=== PATIENT | female | born 1990 | race Caucasian/White ===

== ENCOUNTER → 2017-01-20 | Outpatient (CLI) | payer BC, MEDICAID ==
[~2017-01-20] MED LIST: ALPR0.5T PO; BUSP5TAB59 PO; CYAN10007 IM; HYDR-3812 PO; IBP800T PO; IBUP-1780 PO; LEVO125T6 PO; LEVO25TA45 PO; PNT40TEC PO; SPIR100T37 PO; SUMA100T3 PO; ZOLP5TAB PO
--- NOTE | 2017-01-20 14:28 | Diagnostic Imaging Report ---
Transabdominal and transvaginal pelvic ultrasound. INDICATION: Painful cycles and heavy bleeding. FINDINGS: The uterus is 8.1 x 4 x 4 cm. The endometrial stripe is 1.1 cm in thickness. There is no focal myometrial lesion seen. The right ovary is 3 x 2 x 3.1 cm. The left ovary is 2.1 x 1.6 x 1.6 cm. The ovaries demonstrate arterial and venous waveforms. No mass or fluid collection seen. IMPRESSION: Unremarkable exam. Dictated by: Dictated on workstation # [id number]
== END ==
LOC: RAD 11:54
PROVIDERS: ATTEND Obstetrics & Gynecology
DX: R10.2 Pelvic and perineal pain (principal); N94.19 Other specified dyspareunia
CPT/HCPCS: 76830; 76856

== ENCOUNTER 2017-01-28 05:49 | Outpatient (CLI) | payer BC ==
[~2017-01-28] VITALS: Ht 162.6 cm; Wt 96.6 kg
[2017-01-28] MEDS ORDERED: METF500T4 PO (12:14)
[2017-01-30] MEDS ORDERED: IBUP-1773 PO (08:45)
[2017-01-30] MEDS ORDERED: HYDR-3812 PO (08:45)
== END 2017-01-28 12:22 ==
LOC: PREOP 05:49
PROVIDERS: ATTEND Obstetrics & Gynecology
DX: Z01.818 Encounter for other preprocedural examination (principal); R10.2 Pelvic and perineal pain

== ENCOUNTER 2017-01-30 07:14 | Day surgery (SDC) | payer BC ==
[~2017-01-30] VITALS: Ht 162.6 cm; Wt 96.6 kg
[~2017-01-30 07:14] MED LIST changes: +BUPIVACAINE 0.25% 30 ML (SENSORCAINE) VIAL ONE; +DEXAMETHASONE PF 10 MG/ML (DECADRON) VIAL ONE; +LACTATED RINGERS 1,000 ML IV ONE; +LIDOCAINE PF 2% 10 ML (XYLOCAINE) AMP ONE; +METF500T4 PO; +METHYLENE BLUE 1% INJ 1 ML AMP ONE; +MIDAZOLAM 2 MG/2 ML (VERSED) VIAL ONE; +ONDANSETRON 4 MG/2 ML (SDV) Z0FRAN ONE; +ROCURONIUM 50 MG/5 ML (ZEMURON) VIAL IV ONE; +SEVOFLURANE (ULTANE) 15 ML INHAL SOLN ONE; +fentaNYL INJECTION 250 MCG/5 ML AMP ONE; +proPOfol 200 MG/20 ML (DIPRIVAN) VIAL IV ONE
[2017-01-30 07:30] VITALS: BP 124/87
[2017-01-30] MEDS ORDERED: ceFAZolin 1 GM/NS 50 ML IVPB IV ONE ×2 (07:30)
[2017-01-30] MEDS: LACTATED RINGERS 1,000 ML IV PRN ×2 (07:30→08:20)
--- NOTE | 2017-01-30 07:35 | Progress Note-Pre Operative ---
Pre-Operative Progress Note H&P Reviewed The H&P was reviewed, patient examined and no changes noted. Date H&P Reviewed: January 30, 2017 Time H&P Reviewed: 07:15 Pre-Operative Diagnosis: CPP, Dyspareunia, Dysmenorrhea ERAN GARCIA DO January 30, 2017 7:35 am
[2017-01-30] MEDS ORDERED: NEOSTIGMINE (BLOXIVERZ ) 1 MG/1ML 10 ML VIAL ONE (08:15)
[2017-01-30] MEDS ORDERED: GLYCOPYRROLATE 0.2 MG/ML (ROBINUL) 2 ML VIAL ONE (08:15)
[2017-01-30] MEDS ORDERED: morphine INJ 10 MG/ML 1ML (SYR OR VIAL) ONE (08:30)
[2017-01-30] MEDS ORDERED: MEPERIDINE (DEMEROL) INJ 50 MG/ML ONE (08:30)
[2017-01-30] MEDS ORDERED: KETOROLAC 30 MG/ML VIAL ONE (08:30)
[2017-01-30] MEDS ORDERED: ONDANSETRON 4 MG/2 ML (SDV) Z0FRAN ONE (08:30)
[2017-01-30] MEDS: morphine INJ 10 MG/ML 1ML (SYR OR VIAL) IVP PRN ×2 (08:39→08:43)
[2017-01-30] MEDS ORDERED: D5 LR IV SOLUTION 1,000 ML IV SCH (08:40)
--- NOTE | 2017-01-30 08:43 | Discharge Inst-Women's Service ---
Discharge Inst-Women's Serv Depart Medication/Instructions New, Converted or Re-Newed RX: RX on Chart Consults/Follow Up Additional Follow Up: Yes Activity Activity: Activity as Tolerated Driving Instructions: No Driving for 1 Week NO SMOKING: NO SMOKING Nothing Inside Vagina: No Douching, No [place], No Tampons Diet Discharge Diet: No Restrictions Symptoms to Report to : Bleeding Excessive, Pain Increased, Fever Over 101 Degrees F, Vaginal Bleeding Increase, Questions/Concerns For Any Problems or Questions: Contact Your Physician Skin/Wound Care Infection Signs and Symptoms: Increased Redness, Foul Odor of Wound, Increased Drainage, Skin Itchy or Has a Rash, Increased Swelling, Temperature Above 101 F Operative Area Clean and Dry: Keep Incision Clean/Dry Stitches/Colt/Dermabond: Dermabond, Care of Stitches Bathing Instructions: ERAN Mendoza DO January 30, 2017 08:43
[2017-01-30] MEDS ORDERED: HYDROcodone/APAP 5 MG/325 MG (LORTAB) TAB PO PRN (08:45)
[2017-01-30] MEDS ORDERED: IBUP-1773 PO (08:45)
[2017-01-30] MEDS ORDERED: KETOROLAC 30 MG/ML VIAL IVP ONE (08:45)
[2017-01-30] MEDS ORDERED: fentaNYL INJECTION 100 MCG/2 ML AMP IVP PRN (08:45)
[2017-01-30] MEDS ORDERED: ONDANSETRON 4 MG/2 ML (SDV) Z0FRAN IVP PRN ×2 (08:45)
[2017-01-30] MEDS ORDERED: HYDR-3812 PO (08:45)
[2017-01-30] MEDS: MEPERIDINE (DEMEROL) INJ 50 MG/ML IVP PRN (08:45)
--- NOTE | 2017-01-30 08:57 | Progress Note-Post Operative ---
Post-Operative Progess Note Surgeon (s)/Trim Mounter (s) Surgeon ERAN GARCIA DO Trim Mounter: Quick Pre-Operative Diagnosis CPP, Dyspareunia, Dysmenorrhea Post-Operative Diagnosis same Procedure & Operative Findings Date of Procedure 01/30/17 Procedure Performed/Findings Dx Laparoscopy w/ chromotubation Anesthesia Type GETA Estimated Blood Loss Estimated blood loss (mL): min Specimens/Packing Specimens Removed none ERAN GARCIA DO January 30, 2017 8:57 am
[2017-01-30 09:25] VITALS: BP 124/79
[2017-01-30 09:55] VITALS: BP 124/77
--- NOTE | 2017-01-30 10:47 | OPERATIVE REPORT ---
DATE OF SERVICE: 01/30/2017 PREOPERATIVE DIAGNOSES: 1. A 26-year-old female with chronic pelvic pain. 2. Dyspareunia. 3. Dysmenorrhea. POSTOPERATIVE DIAGNOSES: 1. A 26-year-old female with chronic pelvic pain. 2. Dyspareunia. 3. Dysmenorrhea. 4. Bilateral patent fallopian tubes. PROCEDURE: Diagnostic laparoscopy with chromopertubation. SURGEON: Dr. Eran Garcia ANESTHESIA: General endotracheal. ESTIMATED BLOOD LOSS: Minimal. URINE OUTPUT: 15 mL, clear at the end of the procedure. FLUIDS: 1000 mL, lactated Ringer solution. FINDINGS: Grossly normal appearing uterus, bilateral fallopian tubes and ovaries with bilateral spillage of dye from tubes. Grossly normal appearing cervix and vagina. SPECIMENS SENT: None. INDICATIONS FOR PROCEDURE: This 26-year-old female is a patient that has been seeing me in my office for greater than 2 years now. She came in for her annual exam earlier this year and reports attempting for the past year and has been unsuccessful. She also reports worsening chronic pelvic pain and pain with intercourse throughout the year. We discussed the possibility of there being underlying endometriosis due to this ongoing issue with pain; however, we discussed this could be due to tubal occlusion as well so we decided to proceed with a diagnostic laparoscopy. Risks of the procedure were discussed with the patient in detail including risks of bleeding, infection, damage to surrounding structures including but not limited to bowel, bladder, ureter and kidneys, risk of damage to reproductive system. We also discussed the potential for doing nothing, which the patient was not agreeable to do. Consent was obtained in the preoperative area and the patient was taken to the operating room. OPERATIVE REPORT IN DETAIL: Once in the operating room, general anesthesia was found to be adequate, was placed in dorsal lithotomy, prepped and draped in normal sterile fashion. She is first examined under anesthesia. The uterus is not enlarged, freely mobile. No masses or fullness appreciated on bimanual examination. A weighted speculum is inserted into the patient's vagina. A right angle retractor was used to visualize the cervix. It was grasped at the 12 o'clock position using the long Allis clamp. A Kroner uterine manipulator is then placed within the uterus where the balloon is deployed and the manipulator is noted to have excellent manipulation on bimanual examination. I then removed all of the other instruments from the patient's vagina. A Arshad catheter is placed under sterile technique. I performed a change of gloves and turned my attention to the abdomen where the umbilicus was infiltrated sterilely using 1/4% Marcaine and made a 5 mm incision, directed Veress needle into the incision until intraperitoneal placement was confirmed using the saline drops. After this, we proceeded with insufflation using CO2 gas. An opening pressure of 3 mmHg was noted. I proceeded to a maximum pressure of 15 mmHg, at which point I removed the Veress needle and introduced the 5 mm blunt trocar. Once this was in place, I am able to confirm intraperitoneal placing using the laparoscope. I then briefly scanned the pelvic anatomy after placing the patient in steep Trendelenburg. There was no gross abnormalities noted. Using the Kroner uterine manipulator, I infiltrate 100 mL of methylene blue dye that has been mixed with normal saline. Bilateral tubal spillage is noted, after which I copiously irrigated the pelvis using normal saline. There was no active bleeding noted from any of my dissection planes, there is no active bleeding noted from my entry point into the abdomen. There is no gross abnormality noted in the tubes, ovaries, ____ peritoneum or the posterior cul de sac. After which the procedure was deemed complete. I then had the patient taken out of steep Trendelenburg and removed insufflated through the trocar site. I then removed the trocar and closed the skin incision using Dermabond. The Kroner was removed. The Arshad catheter was removed. The patient was taken to the recovery area in stable condition. Lab and sponge counts were correct at the end of the procedure. Instruments counts were correct as well. Job ID: [id number] DocumentID: [id number] Dictated Date: 01/30/2017 08:56:17 Damage Adjuster Date: 01/30/2017 10:47:01 Dictated By: ERAN GARCIA DO
== END 2017-01-30 10:30 | disposition home or self-care (01) ==
LOC: SDC 07:14
PROVIDERS: ATTEND Obstetrics & Gynecology
DX: R10.2 Pelvic and perineal pain (principal); N94.10 Unspecified dyspareunia; E28.2 Polycystic ovarian syndrome; K21.9 Gastro-esophageal reflux disease without esophagitis; F41.9 Anxiety disorder, unspecified; Z79.84 Long term (current) use of oral hypoglycemic drugs
CPT/HCPCS: 84703; 86850; 86900; 86901; 87081; 94664

== ENCOUNTER 2017-06-05 21:40 | Emergency (ER) | payer BC ==
[~2017-06-05] VITALS: Ht 162.6 cm; Wt 95.3 kg
[~2017-06-05 21:40] MED LIST changes: -BUPIVACAINE 0.25% 30 ML (SENSORCAINE) VIAL ONE; -DEXAMETHASONE PF 10 MG/ML (DECADRON) VIAL ONE; +IBUP-1773 PO; -LACTATED RINGERS 1,000 ML IV ONE; -LIDOCAINE PF 2% 10 ML (XYLOCAINE) AMP ONE; -METHYLENE BLUE 1% INJ 1 ML AMP ONE; -MIDAZOLAM 2 MG/2 ML (VERSED) VIAL ONE; -ONDANSETRON 4 MG/2 ML (SDV) Z0FRAN ONE; -ROCURONIUM 50 MG/5 ML (ZEMURON) VIAL IV ONE; -SEVOFLURANE (ULTANE) 15 ML INHAL SOLN ONE; -fentaNYL INJECTION 250 MCG/5 ML AMP ONE; -proPOfol 200 MG/20 ML (DIPRIVAN) VIAL IV ONE
[2017-06-05 22:16] LABS: BILIRUBIN,URINE NEGATIVE (NEGATIVE); KETONES,URINE NEGATIVE (NEGATIVE); LEUKOCYTE ESTERASE ,URINE NEGATIVE (NEGATIVE); NITRITE,URINE NEGATIVE (NEGATIVE); PH,URINE 7 (5-9); PROTEIN,URINE NEGATIVE (NEGATIVE); UROBILINOGEN,URINE NORMAL (NORMAL)
[2017-06-05 22:38] LABS: WBC,URINE RARE /HPF
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
[2017-06-05 23:36] VITALS: BP 0/0
== END 2017-06-05 23:36 | disposition home or self-care (01) ==
LOC: EDUNIT# 21:40 → ER 21:43
DX: O26.891 Other specified pregnancy related conditions, first trimester (principal); R10.30 Lower abdominal pain, unspecified; Z3A.01 Less than 8 weeks gestation of pregnancy; Z87.891 Personal history of nicotine dependence
CPT/HCPCS: 36415; 81000; 84702; 99282

== ENCOUNTER 2017-06-20 20:18 | Emergency (ER) | payer BC ==
[~2017-06-20] VITALS: Ht 162.6 cm; Wt 100.2 kg
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
[2017-06-20 21:07] LABS: BASOPHILS % (AUTO) 0 % (0-10); EOSINOPHILS # (AUTO) 0.1 10^3/uL (0.0-0.3); EOSINOPHILS % (AUTO) 1 % (0-10); LYMPHOCYTES # (AUTO) 3.3 X 10^3 (1.0-4.0); LYMPHOCYTES % (AUTO) 27 % (12-44); MEAN CORPUSCULAR HEMOGLOBIN 29 PG (25-34); MEAN CORPUSCULAR HGB CONC 33 G/DL (32-36); MEAN CORPUSCULAR VOLUME 87 FL (80-99); MEAN PLATELET VOLUME 11.2 FL (7.4-10.4); MONOCYTES # (AUTO) 0.7 X 10^3 (0.0-1.0); MONOCYTES % (AUTO) 6 % (0-12); NEUTROPHILS % (AUTO) 66 % (42-75); PLATELET COUNT 306 10^3/uL (130-400)
[2017-06-20 21:18] LABS: BILIRUBIN,URINE NEGATIVE (NEGATIVE); KETONES,URINE NEGATIVE (NEGATIVE); LEUKOCYTE ESTERASE ,URINE 1+ (NEGATIVE); NITRITE,URINE NEGATIVE (NEGATIVE); PH,URINE 6 (5-9); PROTEIN,URINE 2+ (NEGATIVE); UROBILINOGEN,URINE NORMAL (NORMAL)
[2017-06-20 22:06] VITALS: BP 145/79
--- NOTE | 2017-06-21 07:46 | Diagnostic Imaging Report ---
Obstetrical sonogram. INDICATION: Spotting and cramping. TECHNIQUE: Transvaginal obstetrical sonography was performed. FINDINGS: There is a single live intrauterine gestation. Based on today's crown-rump length measurement, this is estimated at 8 weeks and 5 days gestational age. This corresponds to date of delivery of January 25, 2018. cardiac motion appropriate at 160 beats per minute. No subchorionic hematoma is evident. The ovaries are not demonstrated, but there is no adnexal mass or evidence of free fluid. IMPRESSION: Single live intrauterine gestation at 8 weeks 5 days gestational age. There is appropriate cardiac motion. There is no subchorionic hematoma. Dictated by: Dictated on workstation # [id number]
== END 2017-06-20 22:06 | disposition home or self-care (01) ==
LOC: EDUNIT# 20:18 → ER 20:19
DX: O20.0 Threatened abortion (principal); O99.351 Diseases of the nervous system complicating pregnancy, first trimester; G43.909 Migraine, unspecified, not intractable, without status migrainosus; O99.611 Diseases of the digestive system complicating pregnancy, first trimester; K21.9 Gastro-esophageal reflux disease without esophagitis; O99.341 Other mental disorders complicating pregnancy, first trimester; F41.9 Anxiety disorder, unspecified; F32.9 Major depressive disorder, single episode, unspecified; Z87.448 Personal history of other diseases of urinary system; Z79.84 Long term (current) use of oral hypoglycemic drugs; Z3A.08 8 weeks gestation of pregnancy; Z87.891 Personal history of nicotine dependence
CPT/HCPCS: 36415; 76817; 81000; 84702; 85025; 99282

== ENCOUNTER 2017-06-22 01:34 | Emergency (ER) | payer BC ==
[~2017-06-22] VITALS: Ht 162.6 cm; Wt 100.2 kg
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
[2017-06-22 02:05] LABS: MEAN PLATELET VOLUME 11.2 FL (7.4-10.4); RED BLOOD COUNT 4.52 10^6/uL (4.35-5.85); RED CELL DISTRIBUTION WIDTH 13.9 % (10.0-14.5); WHITE BLOOD COUNT 13.9 10^3/uL (4.3-11.0)
[2017-06-22] MEDS ORDERED: DOXY1TAB3 PO (03:01)
[2017-06-22 03:05] VITALS: BP 148/84
== END 2017-06-22 03:05 | disposition home or self-care (01) ==
LOC: EDUNIT# 01:34 → ER 01:36
DX: O20.0 Threatened abortion (principal); O99.351 Diseases of the nervous system complicating pregnancy, first trimester; G43.909 Migraine, unspecified, not intractable, without status migrainosus; O99.611 Diseases of the digestive system complicating pregnancy, first trimester; K21.9 Gastro-esophageal reflux disease without esophagitis; O99.281 Endocrine, nutritional and metabolic diseases complicating pregnancy, first trimester; E03.9 Hypothyroidism, unspecified; O99.341 Other mental disorders complicating pregnancy, first trimester; F41.9 Anxiety disorder, unspecified; F32.9 Major depressive disorder, single episode, unspecified; Z87.448 Personal history of other diseases of urinary system; Z87.891 Personal history of nicotine dependence; Z3A.09 9 weeks gestation of pregnancy
CPT/HCPCS: 36415; 84702; 85027; 99283

== ENCOUNTER 2017-06-27 00:45 | Emergency (ER) | payer BC ==
[~2017-06-27] VITALS: Ht 162.6 cm; Wt 100.2 kg
[~2017-06-27 00:45] MED LIST changes: -PROG200C6
[2017-06-27] MEDS ORDERED: PROG200C6 (00:58)
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
[2017-06-27 02:27] VITALS: BP 132/71
== END 2017-06-27 02:27 | disposition home or self-care (01) ==
LOC: EDUNIT# 00:45 → ER 00:47
DX: O20.0 Threatened abortion (principal); O99.351 Diseases of the nervous system complicating pregnancy, first trimester; G43.909 Migraine, unspecified, not intractable, without status migrainosus; O99.611 Diseases of the digestive system complicating pregnancy, first trimester; K21.9 Gastro-esophageal reflux disease without esophagitis; O99.281 Endocrine, nutritional and metabolic diseases complicating pregnancy, first trimester; E03.9 Hypothyroidism, unspecified; O99.341 Other mental disorders complicating pregnancy, first trimester; F41.9 Anxiety disorder, unspecified; F32.9 Major depressive disorder, single episode, unspecified; O99.331 Smoking (tobacco) complicating pregnancy, first trimester; F17.210 Nicotine dependence, cigarettes, uncomplicated; Z3A.09 9 weeks gestation of pregnancy; Z79.84 Long term (current) use of oral hypoglycemic drugs
CPT/HCPCS: 36415; 84702; 99283

== ENCOUNTER → 2017-06-27 | Outpatient (CLI) | payer BC ==
[~2017-06-27] MED LIST changes: +DOXY1TAB3 PO; +PROG200C6
--- NOTE | 2017-06-27 14:04 | Diagnostic Imaging Report ---
INDICATION: Viability study. COMPARISON: 06/20/2017. FINDINGS: There is a single live intrauterine fetus again demonstrated. The crown/rump length is 2.76 cm. The estimated gestational age is 9 weeks 5 days. The heart rate is 167 BPM. There has been development of a rather large subchorionic fluid collection since the previous exam in the left upper uterine cavity measuring approximately 4 x 3 cm. IMPRESSION: 1. Live intrauterine showing normal growth since the previous exam now measuring for a 9 week 5 day gestation. 2. There has been development of a rather large subchorionic fluid collection now measuring 4 x 3 cm. Dictated by: Dictated on workstation # [id number]
== END ==
LOC: RAD 11:44
PROVIDERS: ATTEND Obstetrics & Gynecology
DX: O20.8 Other hemorrhage in early pregnancy (principal); Z3A.09 9 weeks gestation of pregnancy
CPT/HCPCS: 76801; 76817

== ENCOUNTER → 2017-09-12 | Outpatient (CLI) | payer BC ==
[~2017-09-12] MED LIST changes: +ACHD5005 PO; -HYDR-3812 PO; +PROG200C6
--- NOTE | 2017-09-12 13:18 | Diagnostic Imaging Report ---
INDICATION: Undergoing anatomical evaluation. TECHNIQUE: Multiple real-time grayscale images were obtained over the gravid uterus. COMPARISON: None FINDINGS: Single viable intrauterine currently in cephalic presentation. Normal amount of amniotic fluid. Placenta anterior and without previa. Cervical length 4.2 cm. Visualized anatomical structures are unremarkable. Biometrical measurements are as follows: Biparietal 4.63 cm, age 20 weeks 0 days. Head circumference 17.73 cm, age 20 weeks 2 days. Abdominal circumference 15.34 cm, age 20 weeks 4 days. Femur length 3.72 cm, age 21 weeks 6 days. Sonographic estimate age: 20 weeks 5 days. Sonographic estimated date of delivery: 01-25-18. Estimated Weight: 393 gm (+/- 57 gm). LMP percentile: 61%. heart rate: 14 beats per minute. number: 1 of 1. IMPRESSION: Single viable intrauterine in a cephalic presentation. Sonographic estimated age 20 weeks 5 days for an estimated date of delivery January 25, 2018. No abnormalities noted at this time. Dictated by: Dictated on workstation # [id number]
== END ==
LOC: RAD 10:26
PROVIDERS: ATTEND Obstetrics & Gynecology
DX: Z34.02 Encounter for supervision of normal first pregnancy, second trimester (principal); Z3A.20 20 weeks gestation of pregnancy
CPT/HCPCS: 76805

== ENCOUNTER 2017-10-04 20:46 | Outpatient (CLI) | payer BC ==
[~2017-10-04] VITALS: Ht 162.6 cm; Wt 102.3 kg
[2017-10-04 20:53] VITALS: BP 133/75
[2017-10-04 21:02] LABS: BILIRUBIN,URINE NEGATIVE (NEGATIVE); CLARITY,URINE CLEAR; COLOR,URINE YELLOW; GLUCOSE, URINE (UA) 3+ (NEGATIVE); KETONES,URINE NEGATIVE (NEGATIVE); LEUKOCYTE ESTERASE ,URINE NEGATIVE (NEGATIVE); NITRITE,URINE NEGATIVE (NEGATIVE); PH,URINE 6 (5-9); PROTEIN,URINE 1+ (NEGATIVE); UROBILINOGEN,URINE NORMAL (NORMAL)
[2017-10-04] MEDS ORDERED: PREN-142 PO (21:39)
[2017-10-04] MEDS ORDERED: METR500T21 PO (21:43)
[2017-10-04] MEDS ORDERED: metroNIDAZOLE 500 MG (FLAGYL) TAB PO ONE (21:45)
--- NOTE | 2017-10-06 14:12 | Physician Query-Final Dx ---
BONIFACIO NOLASCO 10/06/17 1412: Clinic Account Progress/Dx Physician Query: Please give diagnosis Date of Service Oct 04, 2017 at 20:46 TERI DOSHI DO 10/20/17 1909: Clinic Account Progress/Dx DIAGNOSIS: Diagnosis tissue in urine BONIFACIO NOLASCO Oct 06, 2017 14:12 TERI DOSHI DO Oct 20, 2017 19:09
== END 2017-10-04 21:50 | disposition home or self-care (01) ==
LOC: WSo 20:46 → LDRP 20:46 → WSo 21:50
PROVIDERS: ATTEND Obstetrics & Gynecology
DX: O99.89 Other specified diseases and conditions complicating pregnancy, childbirth and the puerperium (principal); R82.99 Other abnormal findings in urine; Z3A.23 23 weeks gestation of pregnancy
CPT/HCPCS: 81000; 99213

== ENCOUNTER 2017-12-15 12:45 | Outpatient (CLI) | payer BC ==
[~2017-12-15] VITALS: Ht 162.6 cm; Wt 103.2 kg
[~2017-12-15 12:45] MED LIST changes: -FAMO-119 PO; -LEVO100T7 PO; -METF500T4 PO; +METF500T5 PO; -METO-352 PO
[2017-12-15 13:16] VITALS: BP_SYST 127; BP_SYST 152; BP_DIAS 75
[2017-12-15] MEDS ORDERED: LEVO100T7 PO (13:19)
[2017-12-15] MEDS ORDERED: FAMO-119 PO (13:21)
[2017-12-15] MEDS ORDERED: METO-352 PO (13:33)
[2017-12-15 13:50] VITALS: BP 127/75
[2017-12-16] MEDS ORDERED: FUROSEMIDE 40 MG/4 ML INJ (LASIX) ONE (14:05)
[2017-12-16] MEDS ORDERED: proPOfol 200 MG/20 ML (DIPRIVAN) VIAL IV ONE (14:05)
[2017-12-16] MEDS ORDERED: ceFAZolin 1,000 MG (ANCEF) VIAL ONE (14:05)
[2017-12-16] MEDS ORDERED: ONDANSETRON 4 MG/2 ML (SDV) Z0FRAN ONE ×2 (14:05)
--- NOTE | 2017-12-16 14:18 | Physician Query-Final Dx ---
NURA COHEN 12/16/17 1418: Clinic Account Progress/Dx Physician Query: Please give diagnosis Date of Service Dec 15, 2017 at 12:45 TERI DOSHI DO 01/05/18 0736: Clinic Account Progress/Dx DIAGNOSIS: Diagnosis decreased movement, third trimester NURA COHEN Dec 16, 2017 14:18 TERI DOSHI DO Jan 05, 2018 07:36
== END 2017-12-15 13:50 | disposition home or self-care (01) ==
LOC: LDRP 12:45 → WSo 12:45
PROVIDERS: ATTEND Obstetrics & Gynecology
DX: O36.8130 Decreased fetal movements, third trimester, not applicable or unspecified (principal); Z3A.34 34 weeks gestation of pregnancy
CPT/HCPCS: 99213

== ENCOUNTER → 2017-12-15 | Outpatient (CLI) | payer BC ==
[~2017-12-15] MED LIST changes: +FAMO-119 PO; +LEVO100T7 PO; +METO-352 PO; +METR500T21 PO; +PREN-142 PO
--- NOTE | 2017-12-15 12:46 | Diagnostic Imaging Report ---
Indication: SVT. Biophysical profile was performed. There is a single live fetus in a cephalic presentation. heart rate was recorded at 149 beats per minute. Amniotic fluid index is 7.2 cm. Placenta is anterior. The overall biophysical profile score is reduced, measuring 4/8. Two point deduction was given for lack of movements visualized as well as posture and tone. Impression: Biophysical profile score 4/8. Results were called to Dr. York by the technologist at the time of the exam. Dictated by: Dictated on workstation # [id number]
== END ==
LOC: RAD 11:24
PROVIDERS: ATTEND Obstetrics & Gynecology
DX: O24.424 Gestational diabetes mellitus in childbirth, insulin controlled (principal); O99.413 Diseases of the circulatory system complicating pregnancy, third trimester; I47.1 Supraventricular tachycardia; Z3A.34 34 weeks gestation of pregnancy
CPT/HCPCS: 76819

== ENCOUNTER 2017-12-16 11:13 | Outpatient (RCR) | payer BC ==
[~2017-12-16 11:13] MED LIST changes: +FAMO-119 PO; +LEVO100T7 PO; +METO-352 PO
[2017-12-16 11:23] VITALS: BP 111/54
[2018-01-11] MEDS ORDERED: GLYB1.253 PO (19:43)
[2018-01-13] MEDS ORDERED: DOCU100C37 PO (08:35)
[2018-01-13] MEDS ORDERED: FERR325T18 PO (08:35)
[2018-01-13] MEDS ORDERED: ACHD5005 PO (08:35)
[2018-01-13] MEDS ORDERED: IBUP-844 PO (08:35)
[2018-01-13] MEDS ORDERED: DIBU30OI TOP (08:35)
[2018-01-13] MEDS ORDERED: Benzocaine/Menthol TP (08:35)
== END 2018-03-16 | disposition home or self-care (01) ==
LOC: WSo 11:13
PROVIDERS: ATTEND Obstetrics & Gynecology
DX: O28.0 Abnormal hematological finding on antenatal screening of mother (principal); O24.414 Gestational diabetes mellitus in pregnancy, insulin controlled; O99.413 Diseases of the circulatory system complicating pregnancy, third trimester; I47.1 Supraventricular tachycardia; Z3A.34 34 weeks gestation of pregnancy
CPT/HCPCS: 59025

== ENCOUNTER → 2017-12-19 | Outpatient (CLI) | payer BC ==
[~2017-12-19] MED LIST changes: +Benzocaine/Menthol TP; +DIBU30OI TOP; +DOCU100C37 PO; +FERR325T18 PO; +GLYB1.253 PO; +IBUP-844 PO
== END ==
LOC: CARD 10:49
PROVIDERS: ATTEND Internal Medicine Cardiovascular Disease
DX: R00.2 Palpitations (principal); I47.1 Supraventricular tachycardia; R07.9 Chest pain, unspecified; Z33.1 Pregnant state, incidental
CPT/HCPCS: 93306

== ENCOUNTER 2018-01-04 19:41 | Outpatient (CLI) | payer BC ==
[~2018-01-04] VITALS: Ht 162.6 cm; Wt 105.3 kg
[~2018-01-04 19:41] MED LIST changes: -Benzocaine/Menthol TP; -DIBU30OI TOP; -DOCU100C37 PO; -FERR325T18 PO; -GLYB1.253 PO; -IBUP-844 PO
[2018-01-04 20:00] VITALS: BP 139/82
--- NOTE | 2018-01-05 20:56 | Physician Query-Final Dx ---
NURA COHEN 01/05/182055: Clinic Account Progress/Dx Physician Query: Please give diagnosis Date of Service Jan 04, 2018 at 19:41 TERI DOSHI DO 01/07/18 0426: Clinic Account Progress/Dx DIAGNOSIS: Diagnosis decreased movement NURA COHEN Jan 05, 2018 20:56 TERI DOSHI DO January 07, 2018 04:26
== END 2018-01-04 21:05 | disposition home or self-care (01) ==
LOC: WSo 19:41 → LDRP 19:42 → WSo 21:05
PROVIDERS: ATTEND Obstetrics & Gynecology
DX: O36.8130 Decreased fetal movements, third trimester, not applicable or unspecified (principal); Z3A.37 37 weeks gestation of pregnancy
CPT/HCPCS: 99213

== ENCOUNTER 2018-01-07 19:57 | Outpatient (CLI) | payer BC ==
[~2018-01-07] VITALS: Ht 162.6 cm; Wt 103.6 kg
[2018-01-07 20:11] VITALS: BP 138/85
[2018-01-07 20:21] LABS: BILIRUBIN,URINE NEGATIVE (NEGATIVE); CLARITY,URINE CLEAR; COLOR,URINE YELLOW; GLUCOSE, URINE (UA) NEGATIVE (NEGATIVE); KETONES,URINE 3+ (NEGATIVE); LEUKOCYTE ESTERASE ,URINE 1+ (NEGATIVE); NITRITE,URINE NEGATIVE (NEGATIVE); PH,URINE 6 (5-9); PROTEIN,URINE 1+ (NEGATIVE); UROBILINOGEN,URINE NORMAL (NORMAL)
[2018-01-07 20:28] LABS: BACTERIA,URINE TRACE /HPF; WBC,URINE 0-2 /HPF
--- NOTE | 2018-01-09 09:05 | Physician Query-Final Dx ---
BONIFACIO NOLASCO 01/09/18 0905: Clinic Account Progress/Dx Physician Query: Please give diagnosis Date of Service January 07, 2018 at 19:57 TIM MARLOW MD 01/09/18 1201: Clinic Account Progress/Dx DIAGNOSIS: Diagnosis False labor BONIFACIO NOLASCO January 09, 2018 09:05 TIM MARLOW MD January 09, 2018 12:01
== END 2018-01-07 21:53 | disposition home or self-care (01) ==
LOC: WSo 19:57 → LDRP 19:58 → WSo 21:53
PROVIDERS: ATTEND Obstetrics & Gynecology
DX: O47.1 False labor at or after 37 completed weeks of gestation (principal); Z3A.37 37 weeks gestation of pregnancy
CPT/HCPCS: 81000; 99213

== ENCOUNTER 2018-01-11 18:45 | Inpatient (IN) | payer BC ==
[~2018-01-11] VITALS: Ht 162.6 cm; Wt 106.1 kg
[2018-01-11] VITALS (8 sets, daily range): BP systolic 115–140; BP diastolic 59–82
[2018-01-11] MEDS ORDERED: GLYB1.253 PO (19:43)
[2018-01-11] MEDS ORDERED: MINERAL OIL CONCENTRATE 99.9% 15 ML UDC TOP PRN (19:45)
[2018-01-11] MEDS ORDERED: TERBUTALINE INJ 1 MG/ML (BRETHINE) AMP SC PRN (19:45)
[2018-01-11] MEDS ORDERED: MISOPROSTOL 100 MCG (CYTOTEC) TAB PO ONE (19:45)
[2018-01-11] MEDS: NS IV 1000 ML 1,000 ML IV SCH (20:32)
[2018-01-11 20:34] LABS: BASOPHILS % (AUTO) 0 % (0-10); EOSINOPHILS % (AUTO) 0 % (0-10); HEMATOCRIT 34 % (35-52); HEMOGLOBIN 11.1 G/DL (11.5-16.0); LYMPHOCYTES # (AUTO) 2.5 X 10^3 (1.0-4.0); LYMPHOCYTES % (AUTO) 22 % (12-44); MEAN CORPUSCULAR HEMOGLOBIN 29 PG (25-34); MEAN CORPUSCULAR HGB CONC 33 G/DL (32-36); MEAN CORPUSCULAR VOLUME 88 FL (80-99); MEAN PLATELET VOLUME 12.2 FL (7.4-10.4); MONOCYTES % (AUTO) 9 % (0-12); NEUTROPHILS # (AUTO) 7.5 X 10^3 (1.8-7.8); NEUTROPHILS % (AUTO) 68 % (42-75); PLATELET COUNT 239 10^3/uL (130-400); RED BLOOD COUNT 3.83 10^6/uL (4.35-5.85); RED CELL DISTRIBUTION WIDTH 14.1 % (10.0-14.5)
[2018-01-11 20:54] LABS: ALANINE AMINOTRANSFERASE 7 U/L (0-55); ALBUMIN 3.2 GM/DL (3.2-4.5); ALKALINE PHOSPHATASE 129 U/L (40-136); BILIRUBIN,TOTAL 0.2 MG/DL (0.1-1.0); BUN/CREATININE RATIO 20; CALCIUM 9.3 MG/DL (8.5-10.1); CARBON DIOXIDE 21 MMOL/L (21-32); CHLORIDE 110 MMOL/L (98-107); CREATININE SERUM 0.64 MG/DL (0.60-1.30); GFR ESTIMATED > 60; GLUCOSE 86 MG/DL (70-105); POTASSIUM 3.9 MMOL/L (3.6-5.0); SODIUM 139 MMOL/L (135-145); TOTAL PROTEIN 6.5 GM/DL (6.4-8.2)
[2018-01-11] MEDS ORDERED: CATHETER FLUSH 10 ML SYR IV SCH (22:00)
[2018-01-12] VITALS (63 sets, daily range): BP systolic 114–170; BP diastolic 60–107
[2018-01-12] MEDS: NS IV 1000 ML 1,000 ML IV SCH ×3 (00:35→16:17)
[2018-01-12] MEDS: MISOPROSTOL 100 MCG (CYTOTEC) TAB PO SCH ×3 (00:37→08:28)
[2018-01-12] MEDS ORDERED: OXYTOCIN/NORMAL SALINE 500 ML IV ONE (08:41)
[2018-01-12] MEDS ORDERED: OXYTOCIN/NORMAL SALINE 500 ML IV SCH ×2 (08:44→21:34)
[2018-01-12] MEDS ORDERED: SUFENTA 0.6MCG/ML BUPIVA 0.125 100 ML ONE (09:32)
[2018-01-12] MEDS ORDERED: LIDOCAINE PF 2% 5 ML (XYLOCAINE) VIAL ONE (10:00)
[2018-01-12] MEDS ORDERED: BUPIVACAINE 0.25% 30 ML (SENSORCAINE) VIAL ONE (10:00)
[2018-01-12] MEDS ORDERED: fentaNYL INJECTION 100 MCG/2 ML AMP ONE (10:00)
[2018-01-12] MEDS ORDERED: LACTATED RINGERS 1,000 ML IV SCH (10:02)
[2018-01-12] MEDS ORDERED: NALOXONE 0.4 MG/ML 1 ML (NARCAN) VIAL IV PRN (10:15)
[2018-01-12] MEDS ORDERED: ONDANSETRON 4 MG/2 ML (SDV) Z0FRAN IV PRN (10:15)
[2018-01-12] MEDS: EPIDURAL (SUFENTA 0.6MCG/ML BUPIVA 0.125%) 100 ML BAG EPI PRN ×2 (10:15→18:01)
--- NOTE | 2018-01-12 12:13 | History & Physical-OB ---
OB - Chief Complaint & HPI Date/Time Date of Admission: Date of Admission: January 11, 2018 at 6:45 pm Time Seen by Provider: 08:15 Chief Complaint/History OB-Reason for Admission/Chief: Induction of Labor Hx : 1 Expected Date of Delivery: January 25, 2018 Gestational Age in Weeks: 38 Gestational Age in Days: 1 Indication for induction: medical complication Admission Nurse Assessment Rev: Yes History of Labs A pos Antibody neg RI RPR NR HBsAg NR HIV NR GC neg GBS neg Allergies and Home Medications Allergies Coded Allergies: diphenhydramine (Verified Allergy, Intermediate, HIVES, 10/31/15) phenazopyridine (Unverified Allergy, Unknown, 09/09/14) Home Medications Famotidine 20 Mg Tablet, 20 MG PO DAILY, (Reported) Glyburide 1.25 Mg Tablet, 1.25 MG PO DAILY, (Reported) Levothyroxine Sodium 100 Mcg Tablet, 100 MCG PO DAILY, (Reported) Metoprolol Succinate 50 Mg Tab.er.24h, 50 MG PO DAILY, (Reported) Vit No.124/Iron/FA 1 Each Tablet, 1 EACH PO DAILY, (Reported) Patient Home Medication List Home Medication List Reviewed: Yes OB - History Hx of Present Care: Yes Ultrasounds: Normal mid trimester US Obstetrical Complications: Gestational Diabetes Medical Complications: Other (BMI 40, Tobacco use in , ) Delivery History Hx Blood Disorders: No Adverse Rxn to Tranfusion: No Patient Past Medical History tobacco use Social History/Family History HIV/AIDS: No Recent Infectious Disease Expo: No Alcohol Use: Denies Use Recreational Drug Use: No 2nd Hand Smoke Exposure: No OB - Admission Exam Physical Exam Vitals: Vital Signs 01/12/18 01/12/18 07:10 09:20 Temp 97.3 Pulse 77 Resp 18 B/P (MAP) 121/91 (101) O2 Delivery Room Air HEENT: NCAT Heart: Rhythm Normal Lungs: Clear Abdomen: Gravid Extremities: Normal Reflexes: Normal Cervical Dilatation: 2cm Effacement: 75% Station: -2 Membranes: Intact Heart Rate: 130's Accelerations: Accelerations Present Decelerations: No Decelerations Short Term Variability: Present Retirement Variability: Average (6-25) Contractions on Admission: 6-10 Minutes Apart Intensity: Mild Vance Scoring Tool (Modified) Dilation (cm): 3-4cm (2) Effacement (%): 51-79% (2) Descent/Station: -1,0 (2) Cervix Consistency: Soft (2) Vance Score: 9 Labs Laboratory Tests Test 01/11/18 20:21 Range/Units White Blood Count 11.0 4.3-11.0 10^3/uL Red Blood Count 3.83 L 4.35-5.85 10^6/uL Hemoglobin 11.1 L 11.5-16.0 G/DL Hematocrit 34 L 35-52 % Mean Corpuscular Volume 88 80-99 FL Mean Corpuscular Hemoglobin 29 25-34 PG Mean Corpuscular Hemoglobin Concent 33 32-36 G/DL Red Cell Distribution Width 14.1 10.0-14.5 % Platelet Count 239 130-400 10^3/uL Mean Platelet Volume 12.2 H 7.4-10.4 FL Neutrophils (%) (Auto) 68 42-75 % Lymphocytes (%) (Auto) 22 12-44 % Monocytes (%) (Auto) 9 0-12 % Eosinophils (%) (Auto) 0 0-10 % Basophils (%) (Auto) 0 0-10 % Neutrophils # (Auto) 7.5 1.8-7.8 X 10^3 Lymphocytes # (Auto) 2.5 1.0-4.0 X 10^3 Monocytes # (Auto) 1.0 0.0-1.0 X 10^3 Eosinophils # (Auto) 0.0 0.0-0.3 10^3/uL Basophils # (Auto) 0.0 0.0-0.1 10^3/uL Sodium Level 139 135-145 MMOL/L Potassium Level 3.9 3.6-5.0 MMOL/L Chloride Level 110 H 98-107 MMOL/L Carbon Dioxide Level 21 21-32 MMOL/L Anion Gap 8 5-14 MMOL/L Blood Urea Nitrogen 13 7-18 MG/DL Creatinine 0.64 0.60-1.30 MG/DL Estimat Glomerular Filtration Rate > 60 BUN/Creatinine Ratio 20 Glucose Level 86 70-105 MG/DL Calcium Level 9.3 8.5-10.1 MG/DL Total Bilirubin 0.2 0.1-1.0 MG/DL Aspartate Amino Transf (AST/SGOT) 12 5-34 U/L Alanine Aminotransferase (ALT/SGPT) 7 0-55 U/L Alkaline Phosphatase 129 40-136 U/L Total Protein 6.5 6.4-8.2 GM/DL Albumin 3.2 3.2-4.5 GM/DL OB - Assessment/Plan/Diagnosis Assessment Assessment: induction of labor Admission Dx 27 yo @ 38.1 GDMA 2- on glyburide Tobacco use in GBS neg Admission Status: Inpatient Order (span 2 midnights) Reason for Inpatient Admission: 27 yo @ 38.1 GDMA 2- on glyburide Tobacco use in GBS neg Plan Induction Method: per Misoprostol Protocol ERAN GARCIA DO January 12, 2018 12:13 pm
[2018-01-12] MEDS ORDERED: raNItidine 50 MG/2 ML INJ (ZANTAC) ONE (12:47)
[2018-01-12] MEDS ORDERED: FAMOTIDINE 20MG/2ML IV (PEPCID) IVP ONE (13:00)
[2018-01-12] MEDS ORDERED: raNItidine 50 MG/2 ML INJ (ZANTAC) IV ONE (13:00)
[2018-01-12] MEDS ORDERED: raNItidine 50 MG/2 ML INJ (ZANTAC) IV NR (13:00)
[2018-01-12] MEDS ORDERED: PROMETHAZINE INJ 25 MG/ML (PHENERGAN) AMP ONE (15:44)
[2018-01-12] MEDS ORDERED: PROMETHAZINE INJ 25 MG/ML (PHENERGAN) AMP IVP ONE (15:45)
[2018-01-12] MEDS ORDERED: LIDOCAINE/EPI 2% 1:200,00 (XYLOCAINE) 10 ML VIAL ONE (19:12)
--- NOTE | 2018-01-12 21:42 | OB Labor & Delivery Record ---
L&D History Date of Service Date of Service: January 12, 2018 History Expected Date of Delivery: January 25, 2018 Gestational Age in Weeks: 38 Hx : 1 Complications Events: Gestational Diabetes, Routine care (tobacco use in ) Operative Indications (Cesarea: N/A-Vaginal Delivery Intrapartal Events: None L&D Stage1 Stage One Onset of Labor - Date: January 12, 2018 Monitors and Tracing Monitor Mode: Internal Heart Rate: 160 Monitor Decelerations: Variable Station: -1 Longterm Variability: Average (6-10) Short Term Variability: Present Presentation: Vertex Vital Signs VS - Last 72 Hours, by Label 01/11/18 01/11/18 01/11/18 01/11/18 19:15 19:45 20:15 20:30 Temp 97.2 Pulse 96 85 Resp 18 18 B/P (MAP) 140/78 (98) 133/79 (97) O2 Delivery Room Air Room Air Room Air Room Air 01/11/18 01/11/18 01/11/18 01/11/18 21:05 21:40 22:05 22:35 Temp 96.7 Pulse 90 88 79 87 Resp 18 18 18 18 B/P (MAP) 128/75 (92) 133/82 (99) 115/59 (77) 126/78 (94) O2 Delivery Room Air Room Air Room Air Room Air 01/11/18 01/11/18 01/12/18 01/12/18 23:05 23:35 00:05 01:00 Pulse 83 71 78 Resp 18 18 18 18 B/P (MAP) 127/70 (89) 132/69 (90) 118/62 (80) O2 Delivery Room Air Room Air Room Air Room Air 01/12/18 01/12/18 01/12/18 01/12/18 01:40 04:50 07:10 08:50 Temp 96.1 97.3 Pulse 75 83 68 75 Resp 18 18 18 18 B/P (MAP) 119/68 (85) 121/68 (85) 130/78 (95) 136/90 (105) O2 Delivery Room Air Room Air Room Air Room Air 01/12/18 01/12/18 01/12/18 01/12/18 09:00 09:20 09:35 09:50 Pulse 77 97 Resp 18 18 18 18 B/P (MAP) 121/91 (101) 170/97 (121) O2 Delivery Room Air Room Air Room Air Room Air 01/12/18 01/12/18 01/12/18 01/12/18 10:15 10:20 10:25 10:30 Pulse 96 93 95 84 Resp 18 18 18 18 B/P (MAP) 162/95 (117) 149/79 (102) 134/79 (97) 147/70 (95) Pulse Ox 100 99 99 99 O2 Delivery Room Air Room Air Room Air Room Air 01/12/18 01/12/18 01/12/18 01/12/18 10:35 10:40 10:45 10:50 Pulse 87 90 75 86 Resp 18 18 18 18 B/P (MAP) 146/69 (94) 144/82 (102) 135/76 (95) 135/82 (99) Pulse Ox 98 98 99 99 O2 Delivery Room Air Room Air Room Air Room Air 01/12/18 01/12/18 01/12/18 01/12/18 11:05 11:10 11:20 11:35 Pulse 88 75 82 74 Resp 18 18 18 18 B/P (MAP) 137/80 (99) 135/81 (99) 134/88 (103) 133/71 (91) Pulse Ox 100 100 100 100 O2 Delivery Room Air Room Air Room Air Room Air 01/12/18 01/12/18 01/12/18 01/12/18 11:50 12:05 12:20 12:35 Pulse 75 93 79 90 Resp 18 18 18 18 B/P (MAP) 141/73 (95) 139/86 (103) 141/69 (93) 138/87 (104) Pulse Ox 100 99 99 99 O2 Delivery Room Air Room Air Room Air Room Air 01/12/18 01/12/18 01/12/18 01/12/18 12:50 13:05 13:15 13:30 Temp 98.7 Pulse 90 112 72 75 Resp 18 18 18 18 B/P (MAP) 136/86 (103) 134/106 (115) 132/74 (93) 130/75 (93) Pulse Ox 99 100 100 100 O2 Delivery Room Air Non Rebreather Non Rebreather Non Rebreather O2 Flow Rate 15.00 15.00 15.00 5/701/12/18 01/12/18 01/12/18 13:45 14:00 14:05 14:20 Pulse 74 93 76 70 Resp 18 18 18 18 B/P (MAP) 114/65 (81) 125/69 (87) 133/70 (91) 130/79 (96) Pulse Ox 100 100 100 100 O2 Delivery Non Rebreather Non Rebreather Non Rebreather Non Rebreather O2 Flow Rate 15.00 15.00 15.00 15.00 01/12/18 01/12/18 01/12/18 01/12/18 14:35 14:50 15:05 15:20 Pulse 82 86 76 83 Resp 18 18 18 18 B/P (MAP) 132/62 (85) 128/76 (93) 119/70 (86) 126/69 (88) Pulse Ox 99 99 99 98 O2 Delivery Room Air Room Air Room Air Room Air 01/12/18 01/12/18 01/12/18 01/12/18 15:35 15:50 16:20 16:35 Pulse 83 89 71 71 Resp 18 18 18 18 B/P (MAP) 117/64 (81) 132/81 (98) 132/77 (95) 125/66 (85) Pulse Ox 98 99 98 98 O2 Delivery Room Air Room Air Room Air Room Air 01/12/18 01/12/18 01/12/18 01/12/18 16:50 17:05 17:20 17:35 Temp 98.4 Pulse 86 74 79 80 Resp 18 18 18 18 B/P (MAP) 118/60 (79) 116/63 (80) 132/74 (93) 135/79 (97) Pulse Ox 94 97 98 99 O2 Delivery Room Air Room Air Room Air Room Air 01/12/18 01/12/18 01/12/18 01/12/18 17:50 18:05 18:20 18:35 Pulse 71 82 88 108 Resp 18 18 18 18 B/P (MAP) 140/72 (94) 142/78 (99) 152/74 (100) 138/82 (100) Pulse Ox 98 98 97 100 O2 Delivery Room Air Room Air Room Air Room Air 01/12/18 18:50 Pulse 133 Resp 18 B/P (MAP) 134/73 (93) Pulse Ox 100 O2 Delivery Room Air Rupture of Membranes Spontaneous Ruture of Membrane: No Amniotic Membrane Rupture Time: 0840 Amniotic Membrane Fluid Desc.: Clear Vaginal Bleeding Description: Normal Show Induction/Anesthesia Epidural Cath Placement - Time: 1018 Progress/Notes Pitocin was started per Martina protocol at 830 am and titrated to max dose of 10 mu/min. Epidural was obtained due to discomfort, and progression to complete and +[address] over the course of 12 hrs. L&D Stage2 Stage Two Stage II Date: January 12, 2018 Monitors and Tracing Monitor Mode: Internal Heart Rate: 160 Monitor Decelerations: Variable Longterm Variability: Minimal (3-5) Position: Left Occiput Transverse Presentation: Vertex Cord Descript/Complications Cord Vessel Description: 3 Vessels Complications Due to maternal tachycardia in the 160s and tachy in the 190s along with variable repetitive decelerations, I decided to expedite delivery with low vacuum extraction. Maternal pushing had progress vtx to +3 station, kiwi vacuum extractor placed down midsagital suture and 550 mm Hg is applied with next maternal push. Gentle traction in an extension of the head is performed which rotates the presentation and allows delivery over a RML. At this point vacuum is released. A nuchal cord is reduced x 1. Delivery Type Infant Delivery Method: Low Vacuum Extraction Anterior Shoulder: Right Episiotomy/Perineal Laceration Laceraction(s)/Extensions: Yes Episiotomy Description: Right Mediolateral Location Modifier: Right Degree (describe repair) RML repaired using 3-0 and 2-0 vicryl suture Condition of Infant Delivery 1 minute Comment: 8 5 minute Comment: 9 Notes live female infant weight 6lbs 15 oz Condition of Condition of : Living Exam: No Observed Abnormalities Resuscitation Resuscitation: N/A - Spontaneous Resp L&D Stage3 Stage Three Stage III Date: January 12, 2018 Pictocin Pitocin Administration mu/min: 10 Pitocin ml/hr: 10 Pitocin Administration Comment: PITOCIN STARTED WIDE OPEN 30 mu min after delivery of placenta Placenta Delivery Placenta Delivery: Spontaneous Delivery Summary Summary Estimated blood loss (mL): 400 Attending at delivery: Eran Garcia DO Condition of Delivery Examined: Cervix Examined, Uterus Explored Post Hemorrhage: No Condition of Mother stable Condition of Infant (s) stable ERAN GARCIA DO January 12, 2018 9:42 pm
[2018-01-12] MEDS ORDERED: BENZOCAINE/MENTHOL (DERMOPLAST) 56 ML CAN TP PRN (21:45)
[2018-01-12] MEDS ORDERED: DIBUCAINE (NUPERCAINAL) 1% OINT 30 GM TOP PRN (21:45)
[2018-01-12] MEDS ORDERED: WITCH HAZEL(TUCKS) 40 EA JAR TOP PRN (21:45)
[2018-01-12] MEDS ORDERED: TETANUS,DIPTH,PERTUSS P/F (BOOSTRIX) 0.5 ML VIAL IM ONE (21:45)
[2018-01-12] MEDS ORDERED: HYDROcodone/APAP 5 MG/325 MG (LORTAB) TAB PO PRN (21:45)
[2018-01-12] MEDS ORDERED: MEASLES,MUMPS,RUBELLA 1 EA INJ SQ ONE (21:45)
[2018-01-12] MEDS ORDERED: CATHETER FLUSH 10 ML SYR IV SCH (22:00)
[2018-01-12] MEDS: IBUPROFEN 600 MG (MOTRIN) TAB PO SCH (22:22)
[2018-01-13 04:33] VITALS: BP 118/79
[2018-01-13] MEDS: IBUPROFEN 600 MG (MOTRIN) TAB PO SCH ×4 (04:33→21:32)
[2018-01-13 05:51] LABS: BASOPHILS % (AUTO) 0 % (0-10); EOSINOPHILS % (AUTO) 0 % (0-10); HEMATOCRIT 28 % (35-52); HEMOGLOBIN 9.3 G/DL (11.5-16.0); LYMPHOCYTES % (AUTO) 12 % (12-44); MEAN CORPUSCULAR HEMOGLOBIN 30 PG (25-34); MEAN CORPUSCULAR HGB CONC 34 G/DL (32-36); MEAN CORPUSCULAR VOLUME 89 FL (80-99); MEAN PLATELET VOLUME 12.4 FL (7.4-10.4); MONOCYTES # (AUTO) 1.1 X 10^3 (0.0-1.0); MONOCYTES % (AUTO) 7 % (0-12); NEUTROPHILS # (AUTO) 13.1 X 10^3 (1.8-7.8); NEUTROPHILS % (AUTO) 81 % (42-75); PLATELET COUNT 213 10^3/uL (130-400); RED BLOOD COUNT 3.13 10^6/uL (4.35-5.85); RED CELL DISTRIBUTION WIDTH 14.2 % (10.0-14.5); WHITE BLOOD COUNT 16.2 10^3/uL (4.3-11.0)
[2018-01-13 07:45] VITALS: BP 124/74
[2018-01-13] MEDS: FERROUS SULF 325 MG (IRON) TAB PO SCH (07:45)
[2018-01-13] MEDS: PRENATAL VITAMIN 1 EA TAB PO SCH (07:45)
[2018-01-13] MEDS: DOCUSATE SODIUM 100 MG (COLACE) CAP PO SCH ×2 (07:45→21:32)
--- NOTE | 2018-01-13 08:32 | Postpartum Progress Note ---
Note Note Day # 1 Subjective: Patient is without complaints. Ambulating, voiding. Tolerating a regular diet without nausea or vomiting. Normal lochia. Pain is well controlled with oral pain medications. Objective: Vital Sign - Last 24 Hours 01/12/18 01/12/18 01/12/18 01/12/18 08:50 09:00 09:20 09:35 Pulse 75 77 97 Resp 18 18 18 18 B/P (MAP) 136/90 (105) 121/91 (101) 170/97 (121) O2 Delivery Room Air Room Air Room Air Room Air 01/12/18 01/12/18 01/12/18 01/12/18 09:50 10:15 10:20 10:25 Pulse 96 93 95 Resp 18 18 18 18 B/P (MAP) 162/95 (117) 149/79 (102) 134/79 (97) Pulse Ox 100 99 99 O2 Delivery Room Air Room Air Room Air Room Air 01/12/18 01/12/18 01/12/18 01/12/18 10:30 10:35 10:40 10:45 Pulse 84 87 90 75 Resp 18 18 18 18 B/P (MAP) 147/70 (95) 146/69 (94) 144/82 (102) 135/76 (95) Pulse Ox 99 98 98 99 O2 Delivery Room Air Room Air Room Air Room Air 01/12/18 01/12/18 01/12/18 01/12/18 10:50 11:05 11:10 11:20 Pulse 86 88 75 82 Resp 18 18 18 18 B/P (MAP) 135/82 (99) 137/80 (99) 135/81 (99) 134/88 (103) Pulse Ox 99 100 100 100 O2 Delivery Room Air Room Air Room Air Room Air 01/12/18 01/12/18 01/12/18 01/12/18 11:35 11:50 12:05 12:20 Pulse 74 75 93 79 Resp 18 18 18 18 B/P (MAP) 133/71 (91) 141/73 (95) 139/86 (103) 141/69 (93) Pulse Ox 100 100 99 99 O2 Delivery Room Air Room Air Room Air Room Air 01/12/18 01/12/18 01/12/18 01/12/18 12:35 12:50 13:05 13:15 Temp 98.7 Pulse 90 90 112 72 Resp 18 18 18 18 B/P (MAP) 138/87 (104) 136/86 (103) 134/106 (115) 132/74 (93) Pulse Ox 99 99 100 100 O2 Delivery Room Air Room Air Non Rebreather Non Rebreather O2 Flow Rate 15.00 15.00 01/12/18 01/12/18 01/12/18 01/12/18 13:30 13:45 14:00 14:05 Pulse 75 74 93 76 Resp 18 18 18 18 B/P (MAP) 130/75 (93) 114/65 (81) 125/69 (87) 133/70 (91) Pulse Ox 100 100 100 100 O2 Delivery Non Rebreather Non Rebreather Non Rebreather Non Rebreather O2 Flow Rate 15.00 15.00 15.00 15.00 01/12/18 01/12/18 01/12/18 01/12/18 14:20 14:35 14:50 15:05 Pulse 70 82 86 76 Resp 18 18 18 18 B/P (MAP) 130/79 (96) 132/62 (85) 128/76 (93) 119/70 (86) Pulse Ox 100 99 99 99 O2 Delivery Non Rebreather Room Air Room Air Room Air O2 Flow Rate 15.00 01/12/18 01/12/18 01/12/18 01/12/18 15:20 15:35 15:50 16:20 Pulse 83 83 89 71 Resp 18 18 18 18 B/P (MAP) 126/69 (88) 117/64 (81) 132/81 (98) 132/77 (95) Pulse Ox 98 98 99 98 O2 Delivery Room Air Room Air Room Air Room Air 01/12/18 01/12/18 01/12/18 01/12/18 16:35 16:50 17:05 17:20 Temp 98.4 Pulse 71 86 74 79 Resp 18 18 18 18 B/P (MAP) 125/66 (85) 118/60 (79) 116/63 (80) 132/74 (93) Pulse Ox 98 94 97 98 O2 Delivery Room Air Room Air Room Air Room Air 01/12/18 01/12/18 01/12/18 01/12/18 17:35 17:50 18:05 18:20 Pulse 80 71 82 88 Resp 18 18 18 18 B/P (MAP) 135/79 (97) 140/72 (94) 142/78 (99) 152/74 (100) Pulse Ox 99 98 98 97 O2 Delivery Room Air Room Air Room Air Room Air 01/12/18 01/12/18 01/12/18 01/12/18 18:35 18:50 19:15 19:35 Temp 98.3 Pulse 108 133 115 134 Resp 18 18 18 18 B/P (MAP) 138/82 (100) 134/73 (93) 150/96 (114) 131/94 (106) Pulse Ox 100 100 O2 Delivery Room Air Room Air Room Air Room Air 01/12/18 01/12/18 01/12/18 01/12/18 19:50 20:10 20:20 20:35 Temp 100.3 Pulse 109 110 114 114 Resp 18 18 18 18 B/P (MAP) 166/100 (122) 140/88 (105) 139/92 (108) 156/107 (123) O2 Delivery Room Air Room Air Room Air Room Air 01/12/18 01/12/18 01/12/18 01/12/18 21:05 21:20 21:35 21:50 Temp 99.6 Pulse 166 107 110 115 Resp 18 18 B/P (MAP) 164/74 (104) 167/78 (107) 144/88 (106) 132/86 (101) O2 Delivery Non Rebreather Room Air Room Air Room Air O2 Flow Rate 10.00 01/12/18 01/12/18 01/12/18 01/12/18 22:05 22:20 22:34 22:49 Temp 100.3 Pulse 130 121 114 117 Resp 18 18 18 B/P (MAP) 137/79 (98) 133/82 (99) 147/74 (98) 131/67 (88) O2 Delivery Room Air Room Air Room Air Room Air 01/12/18 01/13/18 01/13/18 23:30 04:33 07:45 Temp 99.5 97.2 98.2 Pulse 96 85 85 Resp 18 18 18 B/P (MAP) 130/73 (92) 118/79 (92) 124/74 (91) Pulse Ox 97 97 98 O2 Delivery Room Air Room Air Room Air Intake and Output 5/701/12/18 01/13/18 15:00 23:00 07:00 Intake Total 2000 ml 1500 ml 1500 ml Output Total 1100 ml Balance 2000 ml 400 ml 1500 ml Physical Exam: General - Alert and oriented, no apparent distress Abdomen - Soft, appropriately tender to palpation, non-distended, fundus firm at umbilicus Extremities - no edema, negative Sherri's bilaterally Assessment: PPD 1 VAVD Acute blood loss anemia Hx of SVT rate controlled on metoprolol GDMA-2 Plan: Routine care. Encourage breast feeding. Encourage ambulation. Ferrous sulfate supplementation. Plan for discharge tomorrow Vitals - Labs Vital Signs - I&O Vital Signs Date Time Temp Pulse Resp B/P (MAP) Pulse Ox O2 Delivery O2 Flow Rate FiO2 01/13/18 07:45 98.2 85 18 124/74 (91) 98 Room Air 01/13/18 04:33 97.2 85 18 118/79 (92) 97 Room Air 01/12/18 23:30 99.5 96 18 130/73 (92) 97 Room Air 01/12/18 22:49 117 18 131/67 (88) Room Air 01/12/18 22:34 114 18 147/74 (98) Room Air 01/12/18 22:20 100.3 121 18 133/82 (99) Room Air 01/12/18 22:05 130 18 137/79 (98) Room Air 01/12/18 21:50 115 18 132/86 (101) Room Air 01/12/18 21:35 110 18 144/88 (106) Room Air 01/12/18 21:20 99.6 107 20 167/78 (107) Room Air 01/12/18 21:05 166 26 164/74 (104) Non Rebreather 10.00 01/12/18 20:35 114 18 156/107 (123) Room Air 01/12/18 20:20 100.3 114 18 139/92 (108) Room Air 01/12/18 20:10 110 18 140/88 (105) Room Air 01/12/18 19:50 109 18 166/100 (122) Room Air 01/12/18 19:35 134 18 131/94 (106) Room Air 01/12/18 19:15 98.3 115 18 150/96 (114) Room Air 01/12/18 18:50 133 18 134/73 (93) 100 Room Air 01/12/18 18:35 108 18 138/82 (100) 100 Room Air 01/12/18 18:20 88 18 152/74 (100) 97 Room Air 01/12/18 18:05 82 18 142/78 (99) 98 Room Air 01/12/18 17:50 71 18 140/72 (94) 98 Room Air 01/12/18 17:35 80 18 135/79 (97) 99 Room Air 01/12/18 17:20 79 18 132/74 (93) 98 Room Air 01/12/18 17:05 74 18 116/63 (80) 97 Room Air 01/12/18 16:50 98.4 86 18 118/60 (79) 94 Room Air 01/12/18 16:35 71 18 125/66 (85) 98 Room Air 01/12/18 16:20 71 18 132/77 (95) 98 Room Air 01/12/18 15:50 89 18 132/81 (98) 99 Room Air 01/12/18 15:35 83 18 117/64 (81) 98 Room Air 01/12/18 15:20 83 18 126/69 (88) 98 Room Air 01/12/18 15:05 76 18 119/70 (86) 99 Room Air 01/12/18 14:50 86 18 128/76 (93) 99 Room Air 01/12/18 14:35 82 18 132/62 (85) 99 Room Air 01/12/18 14:20 70 18 130/79 (96) 100 Non Rebreather 15.00 01/12/18 14:05 76 18 133/70 (91) 100 Non Rebreather 15.00 01/12/18 14:00 93 18 125/69 (87) 100 Non Rebreather 15.00 01/12/18 13:45 74 18 114/65 (81) 100 Non Rebreather 15.00 01/12/18 13:30 75 18 130/75 (93) 100 Non Rebreather 15.00 01/12/18 13:15 72 18 132/74 (93) 100 Non Rebreather 15.00 01/12/18 13:05 98.7 112 18 134/106 (115) 100 Non Rebreather 15.00 01/12/18 12:50 90 18 136/86 (103) 99 Room Air 01/12/18 12:35 90 18 138/87 (104) 99 Room Air 01/12/18 12:20 79 18 141/69 (93) 99 Room Air 01/12/18 12:05 93 18 139/86 (103) 99 Room Air 01/12/18 11:50 75 18 141/73 (95) 100 Room Air 01/12/18 11:35 74 18 133/71 (91) 100 Room Air 01/12/18 11:20 82 18 134/88 (103) 100 Room Air 01/12/18 11:10 75 18 135/81 (99) 100 Room Air 01/12/18 11:05 88 18 137/80 (99) 100 Room Air 01/12/18 10:50 86 18 135/82 (99) 99 Room Air 01/12/18 10:45 75 18 135/76 (95) 99 Room Air 01/12/18 10:40 90 18 144/82 (102) 98 Room Air 01/12/18 10:35 87 18 146/69 (94) 98 Room Air 01/12/18 10:30 84 18 147/70 (95) 99 Room Air 01/12/18 10:25 95 18 134/79 (97) 99 Room Air 01/12/18 10:20 93 18 149/79 (102) 99 Room Air 01/12/18 10:15 96 18 162/95 (117) 100 Room Air 01/12/18 09:50 18 Room Air 01/12/18 09:35 97 18 170/97 (121) Room Air 01/12/18 09:20 77 18 121/91 (101) Room Air 01/12/18 09:00 18 Room Air 01/12/18 08:50 75 18 136/90 (105) Room Air I & O 01/13/18 07:00 Intake Total 5000 ml Output Total 1100 ml Balance 3900 ml Labs Laboratory Tests 01/13/18 05:19: White Blood Count 16.2H, Red Blood Count 3.13L, Hemoglobin 9.3L, Hematocrit 28L , Mean Corpuscular Volume 89, Mean Corpuscular Hemoglobin 30, Mean Corpuscular Hemoglobin Concent 34, Red Cell Distribution Width 14.2, Platelet Count 213, Mean Platelet Volume 12.4H, Neutrophils (%) (Auto) 81H, Lymphocytes (%) (Auto) 12, Monocytes (%) (Auto) 7, Eosinophils (%) (Auto) 0, Basophils (%) (Auto) 0, Neutrophils # (Auto) 13.1H, Lymphocytes # (Auto) 2.0, Monocytes # (Auto) 1.1H, Eosinophils # (Auto) 0.0, Basophils # (Auto) 0.0 ERAN GARCIA DO January 13, 2018 8:32 am
--- NOTE | 2018-01-13 08:33 | Discharge Inst-Women's Service ---
Discharge Inst-Women's Serv Depart Medication/Instructions New, Converted or Re-Newed RX: RX on Chart Consults/Follow Up Additional Follow Up: Yes Orders/Referrals Dr. Garcia in 6 weeks Activity Activity: Activity as Tolerated Driving Instructions: No Driving for 1 Week NO SMOKING: NO SMOKING Nothing Inside Vagina: No Douching, No [place], No Tampons Diet Discharge Diet: No Restrictions Symptoms to Report to : Bleeding Excessive, Pain Increased, Fever Over 101 Degrees F, Vaginal Bleeding Increase, Questions/Concerns For Any Problems or Questions: Contact Your Physician Skin/Wound Care Bathing Instructions: Shower (or sitz baths x 2 weeks) ERAN GARCIA DO January 13, 2018 8:33 am
[2018-01-13] MEDS ORDERED: Benzocaine/Menthol TP (08:35)
[2018-01-13] MEDS ORDERED: ACHD5005 PO (08:35)
[2018-01-13] MEDS ORDERED: IBUP-844 PO (08:35)
[2018-01-13] MEDS ORDERED: DOCU100C37 PO (08:35)
[2018-01-13] MEDS ORDERED: DIBU30OI TOP (08:35)
[2018-01-13] MEDS ORDERED: FERR325T18 PO (08:35)
[2018-01-13] MEDS ORDERED: meTOproloL SUCCINATE 50 MG (TOPROL XL) TAB PO SCH (09:00)
[2018-01-13] MEDS: CHLORASEPTIC LOZENGE MM PRN ×2 (11:37→21:32)
[2018-01-13 12:15] VITALS: BP 127/79
[2018-01-13] MEDS: LORATADINE (CLARITIN) 10 MG TAB PO SCH (12:17)
[2018-01-13 16:00] VITALS: BP 122/66
[2018-01-13 20:00] VITALS: BP 112/68
[2018-01-14 05:00] VITALS: BP 91/49
[2018-01-14] MEDS: IBUPROFEN 600 MG (MOTRIN) TAB PO SCH (05:03)
--- NOTE | 2018-01-14 08:28 | Postpartum Progress Note ---
Note Note Day # 2 Subjective: Patient is without complaints. Ambulating, voiding. Tolerating a regular diet without nausea or vomiting. Normal lochia. Pain is well controlled with oral pain medications. Objective: Vital Sign - Last 24 Hours 01/13/18 01/13/18 01/13/18 01/14/18 12:15 16:00 20:00 05:00 Temp 98.2 98.4 98.9 97.7 Pulse 90 94 72 73 Resp 18 18 18 18 B/P (MAP) 127/79 (95) 122/66 (84) 112/68 (83) 91/49 (63) Pulse Ox 98 97 98 99 O2 Delivery Room Air Room Air Room Air Room Air Physical Exam: General - Alert and oriented, no apparent distress Abdomen - Soft, appropriately tender to palpation, non-distended, fundus firm at umbilicus Extremities - no edema, negative Sherri's bilaterally Assessment: PPD2 VAVD Acute blood loss anemia Plan: Routine care. Encourage breast feeding. Encourage ambulation. Ferrous sulfate supplementation. Plan for discharge today Vitals - Labs Vital Signs - I&O Vital Signs Date Time Temp Pulse Resp B/P (MAP) Pulse Ox O2 Delivery O2 Flow Rate FiO2 01/14/18 05:00 97.7 73 18 91/49 (63) 99 Room Air 01/13/18 20:00 98.9 72 18 112/68 (83) 98 Room Air 01/13/18 16:00 98.4 94 18 122/66 (84) 97 Room Air 01/13/18 12:15 98.2 90 18 127/79 (95) 98 Room Air ERAN GARCIA DO January 14, 2018 08:28
[2018-01-14 08:30] VITALS: BP 116/70
[2018-01-14] MEDS: PRENATAL VITAMIN 1 EA TAB PO SCH (09:22)
[2018-01-14] MEDS: FERROUS SULF 325 MG (IRON) TAB PO SCH (09:23)
[2018-01-14] MEDS: LORATADINE (CLARITIN) 10 MG TAB PO SCH (09:24)
[2018-01-14] MEDS: DOCUSATE SODIUM 100 MG (COLACE) CAP PO SCH (09:24)
== END 2018-01-14 11:30 | disposition home or self-care (01) | DRG 775 ==
LOC: LDRP 18:45
PROVIDERS: ADMIT Obstetrics & Gynecology; ATTEND Obstetrics & Gynecology
PROC: 3E0DXGC Introduction of Other Therapeutic Substance into Mouth and Pharynx, External Approach (ICD-10-PCS; 2018-01-11)
PROC: 10D07Z6 Extraction of Products of Conception, Vacuum, Via Natural or Artificial Opening (ICD-10-PCS; principal; 2018-01-12)
PROC: 0W8NXZZ Division of Female Perineum, External Approach (ICD-10-PCS; 2018-01-12)
DX: O24.425 Gestational diabetes mellitus in childbirth, controlled by oral hypoglycemic drugs (principal); O99.334 Smoking (tobacco) complicating childbirth; F17.210 Nicotine dependence, cigarettes, uncomplicated; O76 Abnormality in fetal heart rate and rhythm complicating labor and delivery; O69.81X0 Labor and delivery complicated by cord around neck, without compression, not applicable or unspecified; O90.81 Anemia of the puerperium; D62 Acute posthemorrhagic anemia; Z37.0 Single live birth; Z3A.38 38 weeks gestation of pregnancy
CPT/HCPCS: 36415; 80053; 85025; 86850; 86900; 86901; 88307

== ENCOUNTER → 2021-05-23 | Outpatient (CLI) | payer BC ==
[~2021-05-23] MED LIST changes: +Benzocaine/Menthol TP; +DIBU30OI TOP; +DOCU100C37 PO; +FERR325T18 PO; +GLYB1.253 PO; +IBUP-844 PO; +METF-397 PO; -METF500T5 PO; +METR-145 PO; -METR500T21 PO; +PROG200C10; -PROG200C6
[2021-05-23 15:41] LABS: HEMATOCRIT 45 % (35-52); HEMOGLOBIN 14.8 g/dL (11.5-16.0); MEAN CORPUSCULAR HEMOGLOBIN 30 pg (25-34); MEAN CORPUSCULAR HGB CONC 33 g/dL (32-36); MEAN CORPUSCULAR VOLUME 89 fL (80-99); MEAN PLATELET VOLUME 11.5 fL (9.0-12.2); PLATELET COUNT 314 10^3/uL (130-400); WHITE BLOOD COUNT 14.8 10^3/uL (4.3-11.0)
[2021-05-23 15:42] LABS: BASOPHILS # (AUTO) 0.1 10^3/uL (0.0-0.1); BASOPHILS % (AUTO) 1 % (0-10); EOSINOPHILS # (AUTO) 0.3 10^3/uL (0.0-0.3); EOSINOPHILS % (AUTO) 2 % (0-10); LYMPHOCYTES # (AUTO) 4.3 X 10^3 (1.0-4.0); LYMPHOCYTES % (AUTO) 29 % (12-44); MONOCYTES # (AUTO) 0.7 X 10^3 (0.0-1.0); MONOCYTES % (AUTO) 5 % (0-12); NEUTROPHILS # (AUTO) 9.4 X 10^3 (1.8-7.8); NEUTROPHILS % (AUTO) 63 % (42-75)
[2021-05-23 16:26] LABS: BAND NEUTROPHILS 0 %; BASOPHILS % (MANUAL) 0 %; EOSINOPHILS % (MANUAL) 2 %; LYMPHOCYTES % (MANUAL) 28 %; MONOCYTES % (MANUAL) 1 %; NEUTROPHILS % (MANUAL) 69 %
== END ==
LOC: LAB FS 14:46
PROVIDERS: ATTEND Registered Nurse Emergency
DX: K92.1 Melena (principal)
CPT/HCPCS: 36415; 85007; 85027

== ENCOUNTER 2021-05-31 00:10 | Emergency (ER) | payer BC ==
[~2021-05-31] VITALS: Ht 162 cm; Wt 104.4 kg
[2021-05-31] MEDS: LORazepam 0.5 MG (ATIVAN) TABLET PO STA (00:42)
[2021-05-31 01:00] VITALS: BP 128/114
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
== END 2021-05-31 01:00 | disposition home or self-care (01) ==
LOC: EDUNIT# 00:10 → ER FS 00:10
DX: R00.2 Palpitations (principal); F41.9 Anxiety disorder, unspecified; T50.995A Adverse effect of other drugs, medicaments and biological substances, initial encounter; R00.0 Tachycardia, unspecified; K21.9 Gastro-esophageal reflux disease without esophagitis; E03.9 Hypothyroidism, unspecified; F17.210 Nicotine dependence, cigarettes, uncomplicated; Z79.890 Hormone replacement therapy; Z79.899 Other long term (current) drug therapy
CPT/HCPCS: 99283

== ENCOUNTER → 2021-05-31 | Outpatient (CLI) | payer BC ==
--- NOTE | 2021-05-31 15:15 | Diagnostic Imaging Report ---
EXAMINATION: Chest, two views. HISTORY: Cough. COMPARISON: 05/04/2015. FINDINGS: The lungs are clear without edema or pneumonia. No pleural effusion or pneumothorax. Heart size is normal. IMPRESSION: 1. Clear lungs. Dictated by: Dictated on workstation # [id number]
== END ==
LOC: RAD FS 14:43
PROVIDERS: ATTEND Family Medicine
DX: R05 Cough (principal)
CPT/HCPCS: 71046

== ENCOUNTER 2021-06-05 10:25 | Emergency (ER) | payer BC ==
[~2021-06-05] VITALS: Ht 162 cm; Wt 103.0 kg
[2021-06-05 11:01] LABS: BASOPHILS # (AUTO) 0.1 10^3/uL (0.0-0.1); BASOPHILS % (AUTO) 0 % (0-10); EOSINOPHILS # (AUTO) 0.1 10^3/uL (0.0-0.3); EOSINOPHILS % (AUTO) 1 % (0-10); HEMATOCRIT 44 % (35-52); HEMOGLOBIN 14.4 g/dL (11.5-16.0); LYMPHOCYTES # (AUTO) 2.2 10^3/uL (1.0-4.0); LYMPHOCYTES % (AUTO) 14 % (12-44); MEAN CORPUSCULAR HEMOGLOBIN 29 pg (25-34); MEAN CORPUSCULAR HGB CONC 33 g/dL (32-36); MEAN CORPUSCULAR VOLUME 89 fL (80-99); MEAN PLATELET VOLUME 11.4 fL (9.0-12.2); MONOCYTES # (AUTO) 0.7 10^3/uL (0.0-1.0); MONOCYTES % (AUTO) 5 % (0-12); NEUTROPHILS # (AUTO) 12.6 10^3/uL (1.8-7.8); NEUTROPHILS % (AUTO) 80 % (42-75); PLATELET COUNT 330 10^3/uL (130-400); WHITE BLOOD COUNT 15.8 10^3/uL (4.3-11.0)
[2021-06-05 11:09] LABS: BILIRUBIN,URINE NEGATIVE (NEGATIVE); CLARITY,URINE CLOUDY; COLOR,URINE DARK YELLOW; GLUCOSE, URINE (UA) NEGATIVE (NEGATIVE); KETONES,URINE NEGATIVE (NEGATIVE); LEUKOCYTE ESTERASE ,URINE NEGATIVE (NEGATIVE); NITRITE,URINE POSITIVE (NEGATIVE); PROTEIN,URINE NEGATIVE (NEGATIVE)
[2021-06-05 11:09] LABS: ALBUMIN 4.1 GM/DL (3.2-4.5); POTASSIUM 3.7 MMOL/L (3.6-5.0)
[2021-06-05 11:11] LABS: CALCIUM 10.3 MG/DL (8.5-10.1)
[2021-06-05 11:12] LABS: TOTAL PROTEIN 7.7 GM/DL (6.4-8.2)
[2021-06-05 11:15] LABS: CREATININE SERUM 0.73 MG/DL (0.60-1.30)
[2021-06-05 11:18] LABS: MAGNESIUM 1.8 MG/DL (1.6-2.4)
[2021-06-05 11:25] LABS: BAND NEUTROPHILS 1 %; LYMPHOCYTES % (MANUAL) 17 %; MONOCYTES % (MANUAL) 3 %; NEUTROPHILS % (MANUAL) 78 %; RBC MORPH NORMAL; REACTIVE LYMPHOCYTES 1 %
[2021-06-05 11:31] LABS: BACTERIA,URINE LARGE /HPF; WBC,URINE RARE /HPF
[2021-06-05 11:54] LABS: BILIRUBIN,TOTAL 0.3 MG/DL (0.1-1.0)
[2021-06-05] MEDS ORDERED: LACTATED RINGERS 1,000 ML IV ONE (12:30)
[2021-06-05] MEDS ORDERED: LORazepam INJ 2 MG/ML (ATIVAN) VIAL IVP ONE (12:30)
[2021-06-05 13:02] LABS: BENZODIAZEPINES SCREEN URINE POSITIVE (NEGATIVE)
[2021-06-05 13:03] LABS: AMPHETAMINE SCREEN, URINE NEGATIVE (NEGATIVE); BARBITURATE SCREEN URINE NEGATIVE (NEGATIVE); CANNABINOID SCREEN, URINE NEGATIVE (NEGATIVE); COCAINE SCREEN URINE NEGATIVE (NEGATIVE); METHADONE STAT NEGATIVE (NEGATIVE); METHAMPHETAMINE SCREEN URINE S NEGATIVE (NEGATIVE); OPIATE SCREEN URINE NEGATIVE (NEGATIVE); OXYCODONE STAT NEGATIVE (NEGATIVE); PROPOXYPHENE STAT NEGATIVE (NEGATIVE); TRICYCLIC ANTIDEPRESSANTS SCRE NEGATIVE (NEGATIVE)
--- NOTE | 2021-06-05 15:15 | Diagnostic Imaging Report ---
INDICATION: High blood pressure and high heart rate. TIME OF EXAM: 3:02 p.m. COMPARISON: Comparison is made with prior chest from 05/31/2021. FINDINGS: The heart size is normal. The pulmonary vascularity is unremarkable. The lungs are clear. No infiltrate, effusion or pneumothorax is detected. IMPRESSION: No acute cardiopulmonary process is detected. Dictated by: Dictated on workstation # [id number]
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
[2021-06-05 16:32] VITALS: BP 142/100
== END 2021-06-05 16:32 | disposition home or self-care (01) ==
LOC: EDUNIT# 10:25 → ER 10:26
DX: F41.9 Anxiety disorder, unspecified (principal); R06.02 Shortness of breath; R07.89 Other chest pain; I10 Essential (primary) hypertension; R00.0 Tachycardia, unspecified; K21.9 Gastro-esophageal reflux disease without esophagitis; E03.9 Hypothyroidism, unspecified; F17.210 Nicotine dependence, cigarettes, uncomplicated; Z79.890 Hormone replacement therapy
CPT/HCPCS: 36415; 71046; 80053; 80306; 81000; 82306; 83735; 83970; 84439; 84443; 84484; 84703; 85007; 85027; 85379; 86141; 87077; 87088; 87186; 93005; 93041

== ENCOUNTER → 2021-06-21 | Outpatient (CLI) | payer BC ==
[~2021-06-21] MED LIST changes: +CATHETER FLUSH 10 ML SYR IV PRN; +HOLD METFORMIN - RECEIVED CONTRAST 20 ML VIAL IV SCH; +IOHEXOL 350 MG/ML 100 ML (OMNIPAQUE 350) VIAL IV ONE; +NS 100 ML (IVPB) BAG IV ONE
--- NOTE | 2021-06-21 16:20 | Diagnostic Imaging Report ---
PROCEDURE: CT abdomen and pelvis with contrast. TECHNIQUE: Multiple contiguous axial images were obtained through the abdomen and pelvis after administration of intravenous contrast. Auto Exposure Controls were utilized during the CT exam to meet ALARA standards for radiation dose reduction. All CT scans use one or more of the following dose optimizing techniques: automated exposure control, MA and/or KvP adjustment based on patient size and exam type or iterative reconstruction. INDICATION: Abdominal pain. COMPARISON: 06/22/2014. FINDINGS: There is mild low density throughout the liver. No focal hepatic lesion is identified. Gallbladder is surgically absent. There does appear to be a subcentimeter lucency at the head neck junction of the pancreas. This is stable. Otherwise, no pancreatic inflammation is identified. No adrenal gland or splenic lesion is identified. Kidneys are unremarkable in appearance. There is no free fluid within the abdomen or pelvis. No focal inflammation is identified and no organized fluid collection is identified. Intrauterine device is seen in the lower uterus with extension to the internal os. Unopacified bladder is unremarkable. There is minimal umbilical hernia of fat. IMPRESSION: Hepatic steatosis with intrauterine device at the lower uterine segment. Dictated by: Dictated on workstation # [id number]
== END ==
LOC: RAD FS 15:33
PROVIDERS: ATTEND Registered Nurse Emergency
DX: K76.0 Fatty (change of) liver, not elsewhere classified (principal); Z97.5 Presence of (intrauterine) contraceptive device
CPT/HCPCS: 74177

== ENCOUNTER → 2021-06-26 | Outpatient (CLI) | payer BC ==
[~2021-06-26] MED LIST changes: -CATHETER FLUSH 10 ML SYR IV PRN; -HOLD METFORMIN - RECEIVED CONTRAST 20 ML VIAL IV SCH; -IOHEXOL 350 MG/ML 100 ML (OMNIPAQUE 350) VIAL IV ONE; -NS 100 ML (IVPB) BAG IV ONE
== END ==
LOC: RT 13:42
PROVIDERS: ATTEND Registered Nurse Emergency
DX: R06.2 Wheezing (principal)

== ENCOUNTER → 2021-10-05 | Outpatient (CLI) | payer BC ==
--- NOTE | 2021-10-05 16:20 | Diagnostic Imaging Report ---
PROCEDURE: Pelvic comp/transvaginal sonogram. TECHNIQUE: Complete transabdominal and transvaginal pelvic ultrasound was performed. In addition, limited pelvic Doppler was performed. INDICATION: Acute pelvic pain. Patient has an IUD. FINDINGS: Uterus is anteverted measuring 7.4 x 4.0 x 4.8 cm. Endometrium is 3 mm in thickness. IUD does appear to be slightly low in position in the lower uterine segment. No myometrial mass is detected. Right ovary measures 2.6 x 1.4 x 1.8 cm, and the left ovary measures 3.2 x 1.5 x 2.7 cm. There is a left ovarian cyst measuring 2.2 x 1.5 cm. There is blood flow to both ovaries. No free fluid is seen. IMPRESSION: 1. IUD appears to be slightly low in position in the lower uterine segment. 2. Left ovary contains 2.2 x 1.5 cm simple cyst. Dictated by: Dictated on workstation # [id number]
== END ==
LOC: RAD 14:58
PROVIDERS: ATTEND Obstetrics & Gynecology
DX: N83.202 Unspecified ovarian cyst, left side (principal); Z97.5 Presence of (intrauterine) contraceptive device
CPT/HCPCS: 76830; 76856

== ENCOUNTER 2022-12-21 22:58 | Emergency (ER) | payer BC, OTHER ==
[~2022-12-21] VITALS: Ht 162.5 cm; Wt 108.9 kg
[2022-12-21 23:33] LABS: BACTERIA,URINE LARGE /HPF; BILIRUBIN,URINE NEGATIVE (NEGATIVE); CLARITY,URINE CLEAR; COLOR,URINE YELLOW; GLUCOSE, URINE (UA) NEGATIVE (NEGATIVE); KETONES,URINE NEGATIVE (NEGATIVE); LEUKOCYTE ESTERASE ,URINE NEGATIVE (NEGATIVE); NITRITE,URINE POSITIVE (NEGATIVE); PROTEIN,URINE NEGATIVE (NEGATIVE)
[2022-12-21 23:43] LABS: AMPHETAMINE SCREEN, URINE NEGATIVE (NEGATIVE); BARBITURATE SCREEN URINE NEGATIVE (NEGATIVE); BENZODIAZEPINES SCREEN URINE NEGATIVE (NEGATIVE); CANNABINOID SCREEN, URINE NEGATIVE (NEGATIVE); COCAINE SCREEN URINE NEGATIVE (NEGATIVE); METHADONE STAT NEGATIVE (NEGATIVE); OPIATE SCREEN URINE NEGATIVE (NEGATIVE); OXYCODONE STAT NEGATIVE (NEGATIVE); PROPOXYPHENE STAT NEGATIVE (NEGATIVE); TRICYCLIC ANTIDEPRESSANTS SCRE NEGATIVE (NEGATIVE)
[2022-12-21] MEDS ORDERED: CATHETER FLUSH 10 ML SYR IV PRN (23:45)
[2022-12-21] MEDS ORDERED: HOLD METFORMIN - RECEIVED CONTRAST 20 ML VIAL IV SCH (23:45)
[2022-12-21] MEDS ORDERED: NS 100 ML (IVPB) BAG IV ONE (23:45)
[2022-12-21] MEDS ORDERED: IOHEXOL 350 MG/ML 100 ML (OMNIPAQUE 350) VIAL IV ONE (23:45)
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
[2022-12-21 23:49] LABS: BASOPHILS # (AUTO) 0.1 10^3/uL (0.0-0.1); BASOPHILS % (AUTO) 1 % (0-10); EOSINOPHILS # (AUTO) 0.3 10^3/uL (0.0-0.3); EOSINOPHILS % (AUTO) 3 % (0-10); HEMATOCRIT 40 % (35-52); HEMOGLOBIN 13.2 g/dL (11.5-16.0); LYMPHOCYTES # (AUTO) 3.9 10^3/uL (1.0-4.0); LYMPHOCYTES % (AUTO) 37 % (12-44); MEAN CORPUSCULAR HEMOGLOBIN 29 pg (25-34); MEAN CORPUSCULAR HGB CONC 33 g/dL (32-36); MEAN CORPUSCULAR VOLUME 88 fL (80-99); MEAN PLATELET VOLUME 10.7 fL (9.0-12.2); MONOCYTES # (AUTO) 0.6 10^3/uL (0.0-1.0); MONOCYTES % (AUTO) 6 % (0-12); NEUTROPHILS # (AUTO) 5.7 10^3/uL (1.8-7.8); NEUTROPHILS % (AUTO) 54 % (42-75); PLATELET COUNT 275 10^3/uL (130-400); WHITE BLOOD COUNT 10.5 10^3/uL (4.3-11.0)
[2022-12-21] MEDS ORDERED: KETOROLAC 15 MG/ML VIAL IVP STA (23:58)
[2022-12-21] MEDS ORDERED: NS IV 1000 ML 1,000 ML IV STA (23:58)
[2022-12-21] MEDS ORDERED: cefTRIAXone IV/IM 1,000 MG in NS (IVPB) 50 ML IV STA (23:58)
[2022-12-22 00:19] LABS: ALANINE AMINOTRANSFERASE 18 U/L (0-55); ALBUMIN 3.7 GM/DL (3.2-4.5); ALKALINE PHOSPHATASE 90 U/L (40-136); BILIRUBIN,TOTAL < 0.2 MG/DL (0.1-1.0); BUN/CREATININE RATIO 13; CALCIUM 9.5 MG/DL (8.5-10.1); CARBON DIOXIDE 25 MMOL/L (21-32); CHLORIDE 104 MMOL/L (98-107); CREATININE SERUM 0.78 MG/DL (0.60-1.30); GFR ESTIMATED 104; GLUCOSE 123 MG/DL (70-105); LIPASE 40 U/L (8-78); POTASSIUM 3.6 MMOL/L (3.6-5.0); SODIUM 140 MMOL/L (135-145); TOTAL PROTEIN 6.9 GM/DL (6.4-8.2)
[2022-12-22] MEDS ORDERED: LEVO137T40 PO (00:41)
[2022-12-22] MEDS ORDERED: SERT-414 PO (00:41)
[2022-12-22] MEDS ORDERED: IBUP-1780 PO (01:58)
[2022-12-22] MEDS ORDERED: CEPH500C PO (01:58)
[2022-12-22 02:06] VITALS: BP 124/62
--- NOTE | 2022-12-22 05:35 | Diagnostic Imaging Report ---
PROCEDURE: CT abdomen and pelvis with contrast. TECHNIQUE: Multiple contiguous axial images were obtained through the abdomen and pelvis after administration of intravenous contrast. Auto Exposure Controls were utilized during the CT exam to meet ALARA standards for radiation dose reduction. All CT scans use one or more of the following dose optimizing techniques: automated exposure control, MA and/or KvP adjustment based on patient size and exam type or iterative reconstruction. INDICATION: 32-year-old female, lower abdominal pain since yesterday. CORRELATION STUDY: None. FINDINGS: LOWER THORAX: Clear. LIVER: Mildly elongated. No focal lesion. GALLBLADDER: Cholecystectomy. SPLEEN: Unremarkable. PANCREAS: Unremarkable. ADRENAL GLANDS: Unremarkable. KIDNEYS: Question tiny cyst right kidney. Otherwise unremarkable. No obstruction. ABDOMINAL AORTA: Unremarkable, nonaneurysmal. A few shotty aortocaval and mesenteric lymph nodes. GASTROINTESTINAL TRACT: No obstruction or inflammation. Normal appendix. URINARY BLADDER: Relatively decompressed. REPRODUCTIVE: Intrauterine contraceptive device is present slightly angulated. 2.6 cm left adnexal cyst. OSSEOUS STRUCTURES: No acute abnormality. OTHER: None. IMPRESSION: 1. Negative for acute abnormality of the abdomen or pelvis. Initial report was provided by [facility]. Dictated by: Dictated on workstation # [id number]
== END 2022-12-22 02:06 | disposition home or self-care (01) ==
LOC: EDUNIT# 22:58 → ER FS 23:02
DX: N30.00 Acute cystitis without hematuria (principal); R73.9 Hyperglycemia, unspecified; Z28.310 Unvaccinated for COVID-19; Z90.49 Acquired absence of other specified parts of digestive tract
CPT/HCPCS: 36415; 74177; 80053; 80306; 81000; 83690; 84703; 85025; 87088